=== PATIENT | male | born 1985 | race Caucasian/White ===

== ENCOUNTER 2023-03-24 15:13 | Emergency (ER) | payer BC, OTHER ==
[2023-03-24 15:24] VITALS: BP 155/101; PULSE 88; RESP 18; TEMP 98.8; BMI 23.9
== END 2023-03-24 15:55 | disposition home or self-care (01) ==
LOC: FER 15:13
PROC: 0HQ1XZZ Repair Face Skin, External Approach (ICD-10-PCS; principal; 2023-03-24)
DX: S01.511A Laceration without foreign body of lip, initial encounter (principal); W09.0XXA Fall on or from playground slide, initial encounter
CPT/HCPCS: 12011-25; 99284-25